=== PATIENT | female | born 2000 | race Caucasian/White ===

== ENCOUNTER 2020-12-27 05:12 | Emergency (ER) | payer SELFPAY ==
[2020-12-27] VITALS (7 sets, daily range): BP systolic 121–129; BP diastolic 61–81; PULSE 62–116; RESP 14–17; TEMP 36.4–36.6; O2SAT 98–100; BMI 19.9
--- NOTE | 2020-12-27 05:24 | EDS_ITS ---
HPI <Dr. Michael Rush MD - Last Filed: 12/27/20 21:59> HPI - Psych History of Present Illness Chief Complaint: Mental Health Informant: patient Narrative Narrative: Patient comes in after self injury. She states she has a history of anxiety. She used to be on Lexapro but has been off since about August. She has noticed increased stress recently. She did make plans an appointment to see a counselor and hopefully to get back on Lexapro. She was very stressed this morning. She thought if she cut herself physically that might decrease her emotional stress. She has never done this before though. She states she did not want to kill herself and is not suicidal. But she admits to the emotional stress in the attempt to relieve it. Last tetanus is unknown. Past medical history: Anxiety Medications: None No known drug allergies No recent surgeries Currently college student, no alcohol, no drugs. PFSH <Dr. Michael Rush MD - Last Filed: 12/27/20 21:59> REPLACED BY [facility] Home Medications levonorgestrel-ethinyl estrad [[place] 28] 1 tab DAILY 12/27/20 [History Last Taken Unknown] Allergy/AdvReac Type Severity Reaction Status Date / Time No Known Allergies Allergy Verified 12/27/20 05:26 Social History Smoking Status: Never smoker ROS <Dr. Michael Rush MD - Last Filed: 12/27/20 21:59> ROS ED Constitutional Constitutional ED: Denies chills or fever(s) Eyes Eyes: Denies blurry vision ENT ENT ED: Denies rhinorrhea or sore throat Cardiovascular Cardiovascular: Denies chest pain or palpitations Respiratory/Chest Respiratory/Chest: Denies cough or dyspnea Gastrointestinal Gastrointestinal: Denies diarrhea, nausea or vomiting Genitourinary Genitourinary ED: Denies dysuria or urinary frequency Musculoskeletal Musculoskeletal: Denies myalgias Integumentary Reports other Details: Laceration left medial ankle area Neurologic Neurologic: Denies paresthesias or weakness Psychiatric Psychiatric: Reports anxiety, depression and other Details: See history of present illness. ; Denies suicidal ideation or suicidal thoughts Hematologic/Lymphatic Hematologic/Lymphatic: Denies easy bleeding or easy bruising EXAM <Dr. Michael Rush MD - Last Filed: 12/27/20 21:59> Physical Exam Const Vital Signs: 12/27/20 05:15 12/27/20 05:29 12/27/20 06:15 Temperature 97.6 F L 97.8 F Temperature Source Temporal Oral Pulse Rate 116 H Respiratory Rate 17 16 Blood Pressure 127/61 H Blood Pressure Mean 83 Pulse Ox 100 Oxygen Delivery Method Room Air 12/27/20 07:13 12/27/20 08:08 12/27/20 10:18 Temperature Temperature Source Pulse Rate 100 101 H Respiratory Rate 14 14 14 Blood Pressure 121/81 H 122/69 H Blood Pressure Mean 94 86 Pulse Ox Oxygen Delivery Method 12/27/20 10:54 Temperature Temperature Source Pulse Rate 62 Respiratory Rate 17 Blood Pressure 129/74 H Blood Pressure Mean Pulse Ox 98 Oxygen Delivery Method Positive well nourished and well developed General Appearance ED: well developed and NAD HEENT Reports moist mucous membranes Eyes General Eye ED: Negative for pale conjunctiva or scleral icterus Neck no JVD Resp normal respiratory effort and clear to auscultation bilaterally Cardio Rate: regular rate Rhythm: regular rhythm GI non-tender and non-distended Palpation: soft Back/Spine no CVA tenderness Extremity Extremity Narrative: Patient has a 3 cm laceration to epidermal and subcutaneous tissue on the left ankle above the medial malleolus. There is no active bleeding. She is able to invert her foot as well as flex and extend the foot and the toes. No sign of neuro or vascular or tendinous injury. Neuro oriented x3 Sensorium / Orientation: alert Psych Psych Narrative: Patient has mildly flat affect. But she does make eye contact. She seems to be honest with her answers. Not up to be sedated or under the influence of any chemicals. Skin Skin Narrative: As above. Trauma: laceration <Dr. Khoa Renteria MD - Last Filed: 12/27/20 10:45> Physical Exam Const Vital Signs: 12/27/20 05:15 12/27/20 05:29 12/27/20 06:15 Temperature 97.6 F L 97.8 F Temperature Source Temporal Oral Pulse Rate 116 H Respiratory Rate 17 16 Blood Pressure 127/61 H Blood Pressure Mean 83 Pulse Ox 100 Oxygen Delivery Method Room Air 12/27/20 07:13 12/27/20 08:08 12/27/20 10:18 Temperature Temperature Source Pulse Rate 100 101 H Respiratory Rate 14 14 14 Blood Pressure 121/81 H 122/69 H Blood Pressure Mean 94 86 Pulse Ox Oxygen Delivery Method 12/27/20 10:54 Temperature Temperature Source Pulse Rate 62 Respiratory Rate 17 Blood Pressure 129/74 H Blood Pressure Mean Pulse Ox 98 Oxygen Delivery Method [facility] <Dr. Michael Rush MD - Last Filed: 12/27/20 21:59> [facility] Narrative Medical decision making narrative: Patient's blood work including CBC electrolytes have been on tox show no acute process. Her EKG is overall unremarkable. She is medically cleared for psychiatric evaluation at this time. Procedure: Suture laceration: We discussed risk benefits. We discussed options. The area was cleansed. I then anesthetized the laceration after sterile prep and drape. It was anesthetized with 3 cc of 1% lidocaine. When measured is actually 4 cm total with a slight curve to it. It was irrigated to look at all corners. I see no tendinous involvement. There is no active bleeding. It was sutured with good cosmesis and hemostasis using 9 interrupted 5-0 Ethilon sutures. She tolerated this well. Instructions for care and timing of suture removal were given to patient. Lab Data Attestation: I reviewed the patient's lab results. Labs: Laboratory Results - last 24 hr 12/27/20 12/27/20 12/27/20 05:32 05:32 05:32 WBC 5.2 RBC 5.13 Hgb 13.5 Hct 43.3 MCV 84.4 MCH 26.3 L MCHC 31.2 L RDW Std Deviation 44.6 H RDW Coeff of Bo 14.6 Plt Count 263 MPV 10.5 Immature Gran % (Auto) 0.200 Neut % (Auto) 45.3 L Lymph % (Auto) 41.5 H Ector % (Auto) 6.5 Eos % (Auto) 5.5 H Baso % (Auto) 1.0 Absolute Neuts (auto) 2.4 Absolute Lymphs (auto) 2.17 Nucleated RBC % 0 Sodium 137 Potassium 3.5 Chloride 106 Carbon Dioxide 24.0 Anion Gap 7 BUN 7 Creatinine 0.85 Estim Creat Clear Calc 90.67 Est GFR (MDRD) Af Amer 109 Est GFR (MDRD) Non-Af 90 BUN/Creatinine Ratio 8.2 L Glucose 106 Calcium 9.1 Serum , Qual Urine Opiates Screen Urine Methadone Screen Ur Barbiturates Screen Ur Phencyclidine Scrn Ur Amphetamines Screen U Methamphetamin-MDMA U Benzodiazepines Scrn Urine Cocaine Screen U Cannabinoids Screen Ur Drug Screen Comment Ethyl Alcohol < 3.0 12/27/20 12/27/20 05:32 06:36 WBC RBC Hgb Hct MCV MCH MCHC RDW Std Deviation RDW Coeff of Bo Plt Count MPV Immature Gran % (Auto) Neut % (Auto) Lymph % (Auto) Ector % (Auto) Eos % (Auto) Baso % (Auto) Absolute Neuts (auto) Absolute Lymphs (auto) Nucleated RBC % Sodium Potassium Chloride Carbon Dioxide Anion Gap BUN Creatinine Estim Creat Clear Calc Est GFR (MDRD) Af Amer Est GFR (MDRD) Non-Af BUN/Creatinine Ratio Glucose Calcium Serum , Qual NEGATIVE Urine Opiates Screen NEGATIVE Urine Methadone Screen NEGATIVE Ur Barbiturates Screen NEGATIVE Ur Phencyclidine Scrn NEGATIVE Ur Amphetamines Screen NEGATIVE U Methamphetamin-MDMA NEGATIVE U Benzodiazepines Scrn NEGATIVE Urine Cocaine Screen NEGATIVE U Cannabinoids Screen NEGATIVE Ur Drug Screen Comment Ethyl Alcohol <Dr. Khoa Renteria MD - Last Filed: 12/27/20 10:45> MDM MDM Narrative Medical decision making narrative: Dexter-patient was turned over to me. She appears well. She is calm she is not suicidal she was seen by crisis and she has a safety plan she does not want to hurt herself and she will get set up for outpatient counseling. I believe she is stable for discharge. Lab Data Labs: Laboratory Results - last 24 hr 12/27/20 12/27/20 12/27/20 05:32 05:32 05:32 WBC 5.2 RBC 5.13 Hgb 13.5 Hct 43.3 MCV 84.4 MCH 26.3 L MCHC 31.2 L RDW Std Deviation 44.6 H RDW Coeff of Bo 14.6 Plt Count 263 MPV 10.5 Immature Gran % (Auto) 0.200 Neut % (Auto) 45.3 L Lymph % (Auto) 41.5 H Ector % (Auto) 6.5 Eos % (Auto) 5.5 H Baso % (Auto) 1.0 Absolute Neuts (auto) 2.4 Absolute Lymphs (auto) 2.17 Nucleated RBC % 0 Sodium 137 Potassium 3.5 Chloride 106 Carbon Dioxide 24.0 Anion Gap 7 BUN 7 Creatinine 0.85 Estim Creat Clear Calc 90.67 Est GFR (MDRD) Af Amer 109 Est GFR (MDRD) Non-Af 90 BUN/Creatinine Ratio 8.2 L Glucose 106 Calcium 9.1 Serum , Qual Urine Opiates Screen Urine Methadone Screen Ur Barbiturates Screen Ur Phencyclidine Scrn Ur Amphetamines Screen U Methamphetamin-MDMA U Benzodiazepines Scrn Urine Cocaine Screen U Cannabinoids Screen Ur Drug Screen Comment Ethyl Alcohol < 3.0 12/27/20 12/27/20 05:32 06:36 WBC RBC Hgb Hct MCV MCH MCHC RDW Std Deviation RDW Coeff of Bo Plt Count MPV Immature Gran % (Auto) Neut % (Auto) Lymph % (Auto) Ector % (Auto) Eos % (Auto) Baso % (Auto) Absolute Neuts (auto) Absolute Lymphs (auto) Nucleated RBC % Sodium Potassium Chloride Carbon Dioxide Anion Gap BUN Creatinine Estim Creat Clear Calc Est GFR (MDRD) Af Amer Est GFR (MDRD) Non-Af BUN/Creatinine Ratio Glucose Calcium Serum , Qual NEGATIVE Urine Opiates Screen NEGATIVE Urine Methadone Screen NEGATIVE Ur Barbiturates Screen NEGATIVE Ur Phencyclidine Scrn NEGATIVE Ur Amphetamines Screen NEGATIVE U Methamphetamin-MDMA NEGATIVE U Benzodiazepines Scrn NEGATIVE Urine Cocaine Screen NEGATIVE U Cannabinoids Screen NEGATIVE Ur Drug Screen Comment Ethyl Alcohol Discharge Plan Triage Chief Complaint: Mental Health ED Provider: Michael Rush Dx/Rx/DC Orders Clinical Impression: Injury, self-inflicted, Laceration of ankle, left Instructions: Counseling for Depression, ED Laceration: All Closures Prescriptions: No Action levonorgestrel-ethinyl estrad [[place] 28] 0.15-0.03 mg Tablet 1 tab DAILY RF: 0 Referrals: GUERRERO CAVAZOS [Other] Disposition Disposition: Home, Self Care Discharge Date/Time: 12/27/20 10:55
--- NOTE | 2020-12-27 05:24 | EKG12_ITS ---
Test Reason : DYSRHYTHMIA Blood Pressure : / mmHG Vent. Rate : 107 BPM Atrial Rate : 107 BPM P-R Int : 140 ms QRS Dur : 086 ms QT Int : 328 ms P-R-T Axes : 073 042 050 degrees QTc Int : 437 ms Sinus tachycardia Otherwise normal ECG Confirmed by SHAWNA ALVAREZ, SELVIN ([id number]), film editor supervisor RAQUEL SOTO ([id number]) on 12/29/2020 9:17:41 AM Referred By: PL Confirmed By:SELVIN MATOS MD
[2020-12-27] MEDS: Diphth,Pertuss(Acell),Tet Vac 0.5 ML Vial IM (05:36)
[2020-12-27] MEDS: Lidocaine 1% (20 ml mdv) 20 ML Vial INFILT (05:37)
[2020-12-27 05:45] LABS: Absolute Lymphocyte Count 2.17 X10^3/uL (0.83-4.51); Absolute Neutrophil Count 2.4 X10^3/uL (2.0-7.7); Basophil# 0.05 X10^3/uL; Eosinophil# 0.29 X10^3/uL; Eosinophils% 5.5 % (0-5); Hematocrit 43.3 % (37-47); Hemoglobin 13.5 g/dL (12.0-15.0); Lymphocyte # 2.17 X10^3/ul (0.83-4.51); Lymphocyte % 41.5 % (19-41); Mean Corp Hgb Conc 31.2 g/dL (32-36); Mean Corpuscular Hgb 26.3 pg (27.0-32.0); Mean Corpuscular Volume 84.4 fL (81-99); Mean Platelet Vol. 10.5 fl (6.2-12.0); Monocyte# 0.34 X10^3/uL; Monocyte% 6.5 % (0-10); NRBC Flagged by Analyzer 0 % (0-5); Neutrophil # 2.37 X10^3/uL (2.7-7.7); Neutrophil % 45.3 % (47-70); Platelet Count 263 K/mm3 (150-450); RBC Distribution Width CV 14.6 % (11.6-14.6); RBC Distribution Width SD 44.6 fl (35.1-43.9); Red Blood Count 5.13 M/mm3 (4.2-5.4); White Blood Count 5.2 K/mm3 (4.4-11.0)
[2020-12-27 06:00] LABS: Internal QC Validated? YES +Cl - CLEAR BKGD; Pregnancy, Serum, hCG Quali. NEGATIVE Negative
[2020-12-27 06:03] LABS: Alcohol, Blood (Medical)-Serum < 3.0 mg/dL
[2020-12-27 06:13] LABS: Anion Gap 7 (5-15); BUN 7 mg/dL (7-18); BUN/Creat Ratio 8.2 RATIO (10-20); Calcium,Total 9.1 mg/dL (8.5-10.1); Chloride 106 mmol/L (98-107); Creatinine, Serum 0.85 mg/dL (0.55-1.02); EST Glomerular Filtration Rate 90 mL/min (>60); Est Glom Filt Rate - Afr Amer 109 mL/min (>60); Estimated Creatinine Clearance 90.67 ml/min; Glucose 106 mg/dL (74-106); Potassium 3.5 mmol/L (3.5-5.1); Sodium Level 137 mmol/L (136-145)
[2020-12-27 06:58] LABS: Amphetamine Urine VISTA NEGATIVE (<1000 ng/mL); Barbiturate Urine VISTA NEGATIVE (< 200 ng/mL); Benzodiazepine Urine VISTA NEGATIVE (< 200 ng/mL); Cocaine Urine VISTA NEGATIVE (< 300 ng/mL); Ecstacy Urine VISTA NEGATIVE (< 500 ng/mL); Methadone Urine VISTA NEGATIVE (< 300 ng/mL); PCP Urine VISTA NEGATIVE (< 25 ng/mL); THC Urine VISTA NEGATIVE (< 50 ng/mL); Vista UDS pH Range 6
--- NOTE | 2020-12-27 10:51 | CM.ED ---
SW Note Nataliia from Crisis stated that patient is cleared for discharge and has completed a safety plan. Plan: Home with Safety plan per crisis Augustina ZARCO
== END 2020-12-27 10:55 | disposition home or self-care (01) ==
PROVIDERS: Emergency Provider Emergency Medicine
DX: S91.012A Laceration without foreign body, left ankle, initial encounter (principal); X78.9XXA Intentional self-harm by unspecified sharp object, initial encounter; Y93.9 Activity, unspecified; Y92.9 Unspecified place or not applicable; F41.9 Anxiety disorder, unspecified; F32.A Depression, unspecified
CPT/HCPCS: 12002; 80048; 80307; 82077; 84703; 85025; 87426; 90715; 93005; 99285

== ENCOUNTER 2022-01-21 12:16 | Emergency (ER) | payer OTHER, SELFPAY ==
[2022-01-21 12:17] VITALS: BP 104/69; PULSE 96; RESP 15; TEMP 36.4; O2SAT 99; BMI 19.1
--- NOTE | 2022-01-21 12:47 | RAD_ITS ---
STUDY: X-RAY - LEFT TIBIA AND FIBULA REASON FOR EXAM: Female, 21 years old. Pain TECHNIQUE: 2 view(s) of the tibia and fibula were obtained. COMPARISON: None. FINDINGS: Normal visualized tibia. Normal visualized fibula. The soft tissue structures are unremarkable. RAD/Tibia & Fibula 2 Views IMPRESSION: Normal x-ray examination of the tibia and fibula. Electronically Signed: Crispin Farrar MD at 13:10 EDT ,
--- NOTE | 2022-01-21 12:47 | EDS_ITS ---
HPI History of Present Illness Chief Complaint: Lower Extremity Injury Narrative Narrative: 21-year-old female presenting with left leg pain. She states it hurts behind the left knee and down into her calf. It does not hurt when she is resting. When she dorsiflexes her left foot she feels pain in the proximal calf. She is able to bend her knee without difficulty. No numbness or tingling. 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 Patient states she was able to ambulate off the field. She states that her head coach is a chiropractor and told her she could have broken her fibula. [facility] Medical History Tibia fracture Home Medications levonorgestrel 0.15 mg-ethinyl estradiol 0.03 mg tablet ([place] 28) 1 tab PO DAILY 12/27/20 [History Last Taken Unknown] fluoxetine 20 mg capsule (Prozac) 20 mg PO DAILY 01/21/22 [History Last Taken Unknown] Allergy/AdvReac Type Severity Reaction Status Date / Time No Known Allergies Allergy Verified 01/21/22 12:17 Social History Smoking Status: Never smoker ROS ROS ED Constitutional Constitutional ED: Denies chills or fever(s) Eyes Eyes: Denies change in vision ENT ENT ED: Denies rhinorrhea or sore throat Cardiovascular Cardiovascular: Denies chest pain or palpitations Respiratory/Chest Respiratory/Chest: Denies cough or dyspnea Gastrointestinal Gastrointestinal: Denies abdominal pain or constipation Genitourinary Genitourinary ED: Denies dysuria or hematuria Musculoskeletal Musculoskeletal: Reports other Details: Left lower leg pain ; Denies arthralgias or back pain Integumentary Denies abscess or Abrasions Neurologic Neurologic: Denies headache(s) or paresthesias Psychiatric Psychiatric: Denies anxiety or depression EXAM Physical Exam Const Vital Signs: 01/21/22 12:17 Temperature 97.6 F L Temperature Source Temporal Pulse Rate 96 Respiratory Rate 15 Blood Pressure 104/69 Blood Pressure Mean 80 Pulse Ox 99 Oxygen Delivery Method Room Air Positive well nourished General Appearance ED: NAD HEENT Reports moist mucous membranes normocephalic and atraumatic Chest Wall inspection of chest normal Resp normal respiratory effort and no retractions Cardio regular rate and regular rhythm Extremity normal to inspection Extremity Narrative: Pain with dorsiflexion of the left foot. No bony tenderness noted throughout the left knee left tibia and left fibula left ankle or foot. No abrasions or bruising. Compartments of the leg are soft. Left leg is neurovascular intact brisk cap refill to all 5 toes. Neuro oriented x3 and CN's II-XII intact bilaterally Sensorium / Orientation: alert Motor Exam: strength 5/5 throughout Psych mental status grossly normal Skin no wounds MDM MDM MDM Narrative Medical decision making narrative: Patient requested an x-ray of the left fibula because she is concerned she broke it. I counseled her that it is unlikely given she does not have any pain when I palpate this region. She request an x-ray anyway. Patient does not anything for pain. Patient's x-ray of the left tib-fib on my interpretation shows no acute fracture or subluxation. Patient counseled on findings. She is to use her ice, NSAIDs, elevation. She is to refrain from Reglan to lower injuries healed. Patient discharged home in stable condition. Impression: 1. Left leg contusion Lab Data Attestation: I reviewed the patient's lab results. Radiography Diagnostic Testing: Clinical Impression(s) from Imaging Studies Tibia/Fibula X-Ray 01/21/22 12:47 IMPRESSION: Normal x-ray examination of the tibia and fibula. Electronically Signed: Crispin Farrar MD at 13:10 EDT Reading Location ID and State: [facility] / [place] , Service support , Discharge Plan Triage Chief Complaint: Lower Extremity Injury ED Provider: Jonathan Santiago Dx/Rx/DC Orders Instructions: ED Contusion, Lower Extremity Prescriptions: No Action levonorgestrel-ethinyl estrad [[place] 28] 0.15-0.03 mg Tablet 1 tab PO DAILY fluoxetine [Prozac] 20 mg Capsule 20 mg PO DAILY Primary Care Provider: [facility] Doctor,Out of Referrals: [facility] Doctor,Out of [Primary Care Provider] - Disposition Disposition: Home, Self Care
== END 2022-01-21 13:36 | disposition home or self-care (01) ==
LOC: ED 13:30
PROVIDERS: Emergency Provider Student in an Organized Health Care Education/Training Program; Visit Provider Student in an Organized Health Care Education/Training Program
DX: S80.12XA Contusion of left lower leg, initial encounter (principal); Z79.899 Other long term (current) drug therapy; Y93.63 Activity, rugby
CPT/HCPCS: 73590; 99282